=== PATIENT | male | born 1970 ===

== ENCOUNTER → 2023-11-28 | Emergency (ER) | payer BC ==
[~2023-11-28] MED LIST: DOXYCYCLINE 100 MG CAP PO ONE; LIDOCAINE 2% W/EPI 1:200,000 MPF 20 ML VIAL IM ONE
--- NOTE | 2023-11-28 22:20 | EDPHYS ---
Physician Documentation [facility] Name: Favian Damon Age: 53 yrs Sex: Male : 1970 Arrival Date: 11/28/2023 Time: 21:07 Bed 13 Private MD: ED Physician Ash Giang HPI: 11/28 22:20 This 53 yrs old Male presents to ER via Ambulatory with complaints of Cyst. ms3 22:20 53-year-old male with past medical history of hypertension presents to the emergency sc3 department for right buttock abscess that began on Wednesday. Patient states his discomfort is a 6/10. Patient states he took Tylenol arthritis with mild relief of his symptoms. Patient endorses chills. Patient denies any nausea, vomiting, abdominal pain. Historical: - Allergies: 21:40 No Known Allergies; tm6 - PMHx: 21:40 Hypertensive disorder; tm6 - PSHx: 21:40 None; tm6 - Immunization history:: Adult Immunizations up to date, Client reports receiving the 2nd dose of the Covid vaccine, Flu vaccine is not up to date. - Social history:: Smoking status: Patient reports the use of cigarette tobacco products, smokes one-half pack cigarettes per day. ROS: 22:20 Constitutional: Negative for fever, and chills. Neck: Negative for injury, pain, and ms3 swelling, Cardiovascular: Negative for chest pain, and palpitations. Respiratory: Negative for shortness of breath, cough, wheezing, and pleuritic chest pain, Abdomen/GI: Negative for abdominal pain, nausea, vomiting, diarrhea, and constipation, MS/Extremity: Negative for injury and deformity, 22:20 Skin: Positive for abscess, 22:20 All other systems are negative, Exam: 22:20 Constitutional: This is a well developed, well nourished patient who is awake, alert, ms3 and in no acute distress. Head/Face: Normocephalic, atraumatic. Neck: Trachea midline, no cervical lymphadenopathy. Supple, full range of motion without nuchal rigidity, or vertebral point tenderness. No Meningismus. Chest/axilla: Normal chest wall appearance and motion. Nontender with no deformity. Cardiovascular: Regular rate and rhythm with a normal S1 and S2. No gallops, murmurs, or rubs. Normal PMI, no JVD. No pulse deficits. Respiratory: Lungs have equal breath sounds bilaterally, clear to auscultation and percussion. No rales, rhonchi or wheezes noted. No increased work of breathing, no retractions or nasal flaring. Abdomen/GI: Soft, non-tender, with normal bowel sounds. No distension or tympany. No guarding or rebound. No evidence of tenderness throughout. 22:20 Skin: abscess, that is moderate sized, of the right buttocks, with fluctuance, with induration, with surrounding cellulitis, that is moderate, Vital Signs: 21:38 BP 161 / 89; Pulse 123; Resp 18; Temp 98.6(O); Pulse Ox 96% on R/A; Weight 84.37 kg; tm6 Pain 7/10; 22:23 BP 159 / 115; Pulse 131; Pulse Ox 98% on R/A; tm6 22:32 Pulse 126; tm6 22:52 Pulse 108; tm6 21:38 Pain Scale: Adult tm6 Procedures: 22:20 I \T\ D: Incision and drainage was performed for an abscess of the right buttocks Prepped ms3 with alcohol, Anesthetized with 5 ml's 1% Lidocaine w/ Epi. Incised with #11 blade. Drained large amount purulent fluid. Loculations removed. Abscess cavity explored. Packed with iodoform gauze, Dressing: sterile 4x4 gauze, the patient tolerated the procedure well. MDM: 21:56 Patient medically screened. ms3 22:20 Differential diagnosis: abscess, cellulitis. Data reviewed: vital signs, nurses notes, ms3 and as a result, I will discharge patient. I considered the following discharge prescriptions or medication management in the emergency department Medications were administered in the Emergency Department. See MAR. Care significantly affected by the following chronic conditions: Hypertension. Counseling: I had a detailed discussion with the patient and/or guardian regarding the historical points, exam findings, and any diagnostic results supporting the discharge/admit diagnosis, the need for outpatient follow up, to return to the emergency department if symptoms worsen or persist or if there are any questions or concerns that arise at home. ED course: I\T\D performed without complications. Patient to follow-up with Dr. Trevino in 2 to 3 days for reevaluation. Patient understands and agrees with plan. All questions were answered. Return precautions discussed include worsening symptoms, or any other concern. 23:06 ED course: CBC, BMP, lactated Ringer's ordered for patient's elevated heart rate. On ms3 reevaluation patient's heart rate 108 and patient declines labs and IV fluids. Discussed with patient if he develops fever, worsening symptoms, or any other concerns patient is to return to the emergency department. Patient understands agrees with plan. Patient to follow-up with Dr. Trevino in 2 to 3 days. 11/28 21:36 Order name: Incision \T\ Drainage Setup; Complete Time: 21:50 ms3 Administered Medications: 22:26 Drug: Lidocaine-Epinephrine Infiltration -1%: (1:100,000) 10 ml 20 ml Infiltration tm6 once; to bedside {Note: administered by Dr. Giang.} Volume: 20 ml; Route: Infiltration; 23:04 CANCELLED (Physician Discretion): lactated ringers [id number] ml IV at bolus bolus ms3 23:04 Drug: Doxycycline PO 100 mg PO once Route: PO; cm10 23:07 Follow up: Response: Medication administered at discharge. cm10 Disposition Summary: 11/28/23 23:05 Discharge Ordered Notes: Location: Home(11/28/23 23:05) ms3 Condition: Stable(11/28/23 23:05) ms3 Diagnosis - Cutaneous abscess of buttock(11/28/23 23:05) ms3 Followup: ms3 - With: Winston Trevino MD - When: 2 - 3 days - Reason: Recheck today's complaints Discharge Instructions: - Discharge Summary Sheet ms3 - Skin Abscess ms3 - Incision and Drainage ms3 - How to Take a Sitz Bath ms3 Forms: - Medication Reconciliation Form ms3 - Thank You Letter ms3 - Antibiotic Education ms3 - Prescription Opioid Use ms3 - Patient Portal Instructions ms3 - Leadership Thank You Letter ms3 Signatures: Dispatcher [employer] EDMS Ash Giang DO DO ms3 Sharri Cutler RN RN cm10 Diana Nova RN RN tm6 Corrections: (The following items were deleted from the chart) 21:41 21:40 PMHx: Hypercholesterolemia; tm6 tm6 22:46 22:19 Home ms3 ms3 22:46 22:19 Stable ms3 ms3 22:46 22:19 Cutaneous abscess of buttock ms3 ms3 23:04 22:46 Lactated Ringers Solution IV 1000 ml IV at bolus bolus ordered. ms3 ms3
--- NOTE | 2023-11-28 22:20 | ER ---
Nurse's Notes [facility] Name: Favian Damon Age: 53 yrs Sex: Male : 1970 Arrival Date: 11/28/2023 Time: 21:07 Bed 13 Private MD: Diagnosis: Cutaneous abscess of buttock Presentation: 11/28 21:38 Chief complaint: Patient states: cyst on inside of right buttock since Wednesday, tm6 causing 7/10 pain, accompanied by chills and body aches. Coronavirus screen: Vaccine status: Patient reports receiving the 2nd dose of the covid vaccine. Ebola Screen: Patient negative for fever greater than or equal to 101.5 degrees Fahrenheit, and additional compatible Ebola Virus Disease symptoms Patient denies exposure to infectious person. Patient denies travel to an Ebola-affected area in the 21 days before illness onset. No symptoms or risks identified at this time. Initial Sepsis Screen: Does the patient meet any 2 criteria? HR > 90 bpm. No. Patient's initial sepsis screen is negative. Does the patient have a suspected source of infection? Yes: Skin breakdown/wound. Risk Assessment: Do you want to hurt yourself or someone else? Patient reports no desire to harm self or others. Onset of symptoms was November 20, 2023. 21:38 Method Of Arrival: Ambulatory tm6 21:38 Acuity: LISA 4 tm6 Triage Assessment: 21:40 General: Appears uncomfortable, Behavior is calm, cooperative. Pain: Complains of pain tm6 in gluteal cleft Pain currently is 7 out of 10 on a pain scale. EENT: No signs and/or symptoms were reported regarding the EENT system. Neuro: Level of Consciousness is awake, alert, obeys commands, Oriented to person, place, time, situation. Cardiovascular: Capillary refill < 3 seconds Patient's skin is warm and dry. Respiratory: Airway is patent Respiratory effort is even, unlabored, Respiratory pattern is regular, symmetrical. GI: Abdomen is flat, non-distended. : No signs and/or symptoms were reported regarding the genitourinary system. Derm: Wound noted gluteal cleft Reports pain that is 7 out of 10 on a pain scale. Musculoskeletal: No signs and/or symptoms reported regarding the musculoskeletal system. Historical: - Allergies: 21:40 No Known Allergies; tm6 - PMHx: 21:40 Hypertensive disorder; tm6 - PSHx: 21:40 None; tm6 - Immunization history:: Adult Immunizations up to date, Client reports receiving the 2nd dose of the Covid vaccine, Flu vaccine is not up to date. - Social history:: Smoking status: Patient reports the use of cigarette tobacco products, smokes one-half pack cigarettes per day. Screenin:43 [facility] ED Fall Risk Assessment (Adult) History of falling in the last 3 months, tm6 including since admission No falls in past 3 months (0 pts). Abuse screen: Denies threats or abuse. Denies injuries from another. Nutritional screening: No deficits noted. Tuberculosis screening: No symptoms or risk factors identified. Assessment: 21:43 Reassessment: see triage assessment. tm6 22:52 Reassessment: Patient appears in no apparent distress at this time. No changes from tm6 previously documented assessment. Patient and/or family updated on plan of care and expected duration. Pain level reassessed. Patient is alert, oriented x 3, equal unlabored respirations, skin warm/dry/pink. 22:59 Reassessment: Per provider, due to heart rate decreasing, no need for labs. And pt cm10 reports that he would like to go home and not do labs. Vital Signs: 21:38 BP 161 / 89; Pulse 123; Resp 18; Temp 98.6(O); Pulse Ox 96% on R/A; Weight 84.37 kg; tm6 Pain 7/10; 22:23 BP 159 / 115; Pulse 131; Pulse Ox 98% on R/A; tm6 22:32 Pulse 126; tm6 22:52 Pulse 108; tm6 21:38 Pain Scale: Adult tm6 ED Course: 21:11 Patient arrived in ED. es 21:12 Ash Giang DO is Attending Physician. ms3 21:28 Diana Nova, JESSICA is Primary Nurse. tm6 21:40 Triage completed. tm6 21:40 Arm band placed on right wrist. tm6 21:43 Patient has correct armband on for positive identification. Placed in gown. Bed in low tm6 position. Call light in reach. Side rails up X2. Provided Education on: plan of care. Client placed on continuous cardiac and pulse oximetry monitoring. NIBP monitoring applied. Door closed. Noise minimized. Warm blanket given. 22:18 Winston Trevino MD is Referral Physician. ms3 22:26 cyst drainage and packing. Dressings: Tegaderm X 2; gluteal cleft 4X4s X 1; gluteal tm6 cleft. 23:04 Winston Trevino MD is Referral Physician. ms3 23:08 Patient did not have IV access during this emergency room visit. cm10 Administered Medications: 22:26 Drug: Lidocaine-Epinephrine Infiltration -1%: (1:100,000) 10 ml 20 ml Infiltration tm6 once; to bedside {Note: administered by Dr. Giang.} Volume: 20 ml; Route: Infiltration; 23:04 CANCELLED (Physician Discretion): lactated ringers [id number] ml IV at bolus bolus ms3 23:04 Drug: Doxycycline PO 100 mg PO once Route: PO; cm10 23:07 Follow up: Response: Medication administered at discharge. cm10 Medication: 21:43 VIS not applicable for this client. tm6 Outcome: 22:19 Discharge ordered by . ms3 23:05 Discharge ordered by MD. ms3 23:07 Discharged to home ambulatory, cm10 23:07 Condition: good 23:07 Discharge instructions given to patient, Instructed on discharge instructions, follow up and referral plans. medication usage, wound care, Demonstrated understanding of instructions, follow-up care, medications, wound care, Prescriptions given X 1, 23:08 Patient left the ED. cm10 Signatures: Donya Farmer Marcus, DO DO ms3 Sharri Cutler RN RN cm10 Diana Nova RN RN tm6 Corrections: (The following items were deleted from the chart) 21:41 21:40 PMHx: Hypercholesterolemia; tm6 tm6 23:03 22:59 Reassessment: Per provider, due to heart rate decreasing, no need for labs. tm6 cm10
[2023-11-29 00:20] VITALS: BP 159/115; TEMP 98.6; O2SAT 98
== END ==
LOC: ER 21:07
PROC: 0H98XZZ Drainage of Buttock Skin, External Approach (ICD-10-PCS; principal; 2023-11-28)
DX: L02.31 Cutaneous abscess of buttock (principal); F17.210 Nicotine dependence, cigarettes, uncomplicated
CPT/HCPCS: 99284